=== PATIENT | male | born 1990 | race Hispanic/Latino ===

== ENCOUNTER 2021-06-21 18:59 | Emergency (ER) | payer SELFPAY ==
[~2021-06-21] VITALS: Ht 162.6 cm; Wt 68.0 kg
[2021-06-21] MEDS ORDERED: ACETAMINOPHEN 325 MG TAB PO ONE (19:30)
[2021-06-21] MEDS ORDERED: CASIRIVIMAB/IMDEVIMAB 10 ML in SODIUM CHLORIDE 0.9% 100 ML IV ONE (20:15)
== END 2021-06-21 22:32 | disposition home or self-care (01) ==
LOC: ER 20:29
DX: R50.9 Fever, unspecified (principal); R05 Cough; U07.1 COVID-19
CPT/HCPCS: 99283; J7050; U0002